=== PATIENT | male | born 1950 | race Caucasian/White ===

== ENCOUNTER 2023-03-22 10:44 | Emergency (ER) | payer OTHER ==
[~2023-03-22] VITALS: Ht 175.3 cm; Wt 90.7 kg
[~2023-03-22 10:44] MED LIST: ASPI81CH PO; CITA20 PO; ESOM20 PO; ETOD400CR PO; NIFE20 PO; PANT40 PO
[2023-03-22 12:10] VITALS: BP 105/77
[2023-03-22] MEDS ORDERED: LISI20 PO (15:14)
[2023-03-22] MEDS ORDERED: ATOR20 PO (15:16)
[2023-03-22] MEDS ORDERED: SERT50 PO (15:16)
[2023-03-22] MEDS ORDERED: MULVITA PO (15:18)
[2023-03-22] MEDS ORDERED: MIRALAX17 GM PO (15:21)
[2023-03-22] MEDS ORDERED: Ketoconazole120 ML TOP ×2 (15:24→15:26)
[2023-03-22] MEDS ORDERED: PANT40 PO (15:28)
[2023-03-22] MEDS ORDERED: MELA3 PO (15:30)
== END 2023-03-22 12:12 | disposition home or self-care (01) ==
LOC: ER 10:44
DX: S00.11XA Contusion of right eyelid and periocular area, initial encounter (principal); S00.211A Abrasion of right eyelid and periocular area, initial encounter; I10 Essential (primary) hypertension; K21.9 Gastro-esophageal reflux disease without esophagitis; F43.10 Post-traumatic stress disorder, unspecified; G20.A1 Parkinson's disease without dyskinesia, without mention of fluctuations; Z88.8 Allergy status to other drugs, medicaments and biological substances; Z88.0 Allergy status to penicillin; Z79.82 Long term (current) use of aspirin; Z79.899 Other long term (current) drug therapy; Z87.891 Personal history of nicotine dependence; W06.XXXA Fall from bed, initial encounter
CPT/HCPCS: 70450